=== PATIENT | female | born 1935 | race Caucasian/White ===

== ENCOUNTER → 2017-05-30 | Outpatient (CLI) | payer MEDICARE, OTHER ==
[~2017-05-30] MED LIST: ACETAMINOPHEN-1 EAC1 PO; ADDERALL 20 MG20 M1 PO; ARICEPT 5 MG TAB5 MG PO; ASPIR 8181 MG PO; CARBIDOPA-LEVO1 EAC8 PO; CARDIZEM CD120 MG PO; CENTRUM SILVER1 EAC2 PO; CETIRIZINE HCL5 MG PO; COLACE 100 MG100 MG PO; COLACE100 MG PO; KEFLEX500 MG PO; NAMENDA 5 MG TAB5 M1 PO; NORVASC2.5 MG PO; ONDANSETRON HCL4 M2 PO; OXYBUTYNIN CHLO10 MG PO; OXYCODONE HCL 55 MG PO; PAXIL10 MG PO; PREDNISONE 5 MG5 M1 PO; PROTONIX40 M1 PO; SEROQUEL 25 MG25 M1 PO; SERTRALINE HCL50 MG PO; TYLENOL EXTRA500 MG PO; TYLENOL325 MG PO; VITAMIN D1000 UNI1 PO; ZESTRIL20 MG PO
== END ==
LOC: M.CT 15:00 → M.LAB 15:00 → M.CT 15:20
DX: R53.83 Other fatigue (principal); R41.3 Other amnesia; Z88.1 Allergy status to other antibiotic agents

== ENCOUNTER 2017-08-30 12:19 | Inpatient (IN) | payer MEDICARE, OTHER ==
[~2017-08-30] VITALS: Ht 160 cm; Wt 60.3 kg
[~2017-08-30 12:19] MED LIST changes: -ADDERALL 20 MG20 M1 PO; -CARDIZEM CD120 MG PO; -COLACE 100 MG100 MG PO; -NAMENDA 5 MG TAB5 M1 PO; -OXYBUTYNIN CHLO10 MG PO; -SEROQUEL 25 MG25 M1 PO; -SERTRALINE HCL50 MG PO; -TYLENOL EXTRA500 MG PO; -VITAMIN D1000 UNI1 PO
[2017-08-30 12:26] VITALS: BP 122/53
[2017-08-30 13:11] LABS: ABSOLUTE EOSINOPHILS 0.2 thou/uL (0.0-0.7); ABSOLUTE LYMPHOCYTES 0.9 thou/uL (0.8-5.3); ABSOLUTE MONOCYTES 0.5 thou/uL (0.0-1.2); ABSOLUTE NEUTROPHILS 5.6 thou/uL (1.6-8.1); BASOPHILS 0.6 %; EOSINOPHILS 3.2 %; HEMATOCRIT 32.8 % (37.0-47.0); HEMOGLOBIN 10.3 gm/dL (12.0-15.0); LYMPHOCYTES 12.1 %; MCH 28.5 pg (26.0-34.0); MCHC 31.3 g/dL (28.0-37.0); MCV 90.9 fL (80.0-100.0); MONOCYTES 7.5 %; MPV 7.6 fl. (7.2-11.1); NUCLEATED RBCS 0 /100WBC; PLATELET COUNT* 229 thou/uL (150-400); POLYS 76.6 %; RDW-CV 16.5 % (10.5-14.5); WBC 7.3 thou/uL (4.0-11.0)
[2017-08-30 13:16] LABS: ANION GAP 12 mmol/L (7-16); BUN 21 mg/dL (7-18); CHLORIDE 102 mmol/L (98-107); CO2 31 mmol/L (21-32); CREATININE 1.1 mg/dL (0.6-1.3); GLUCOSE 139 mg/dL (70-99); POTASSIUM 4.2 mmol/L (3.5-5.1); SODIUM 145 mmol/L (136-145)
[2017-08-30 13:22] LABS: APTT 24.1 Seconds (25.0-31.3); INR 1.1; PROTIME 10.8 Seconds (9.20-11.50)
[2017-08-30 13:27] LABS: ALBUMIN 3.1 g/dL (3.4-5.0); ALKALINE PHOSPHATASE 114 U/L (46-116); NT-PRO BRAIN NAT PEPTIDE 2012 pg/mL (<300); SGOT 21 U/L (15-37); SGPT 24 U/L (30-65); TOTAL BILIRUBIN 0.4 mg/dL (<0.1-1.0); TROPONIN-I LEVEL <0.06 ng/mL (<0.06)
[2017-08-30] MEDS ORDERED: VITAMIN D1000 UNI1 PO (13:37)
[2017-08-30] MEDS ORDERED: COLACE 100 MG100 MG PO (13:37)
[2017-08-30] MEDS ORDERED: CARDIZEM CD120 MG PO (13:38)
[2017-08-30] MEDS ORDERED: NAMENDA 5 MG TAB5 M1 PO (13:40)
[2017-08-30] MEDS ORDERED: OXYBUTYNIN CHLO10 MG PO (13:41)
[2017-08-30] MEDS ORDERED: SEROQUEL 25 MG25 M1 PO (13:42)
[2017-08-30] MEDS ORDERED: TYLENOL EXTRA500 MG PO (13:42)
[2017-08-30] MEDS ORDERED: SERTRALINE HCL50 MG PO (13:43)
[2017-08-30 14:33] LABS: URINE BILIRUBIN NEGATIVE (Negative); URINE BLOOD NEGATIVE (Negative); URINE CLARITY CLEAR; URINE COLOR YELLOW; URINE GLUCOSE-RANDOM NEGATIVE (Negative); URINE KETONES NEGATIVE (Negative); URINE LEUKOCYTES-REFLEX NEGATIVE (Negative); URINE NITRITE-REFLEX NEGATIVE (Negative); URINE PROTEIN NEGATIVE (Negative); URINE UROBILINOGEN 0.2 E.U./dl (0.2-1.0)
--- NOTE | 2017-08-30 14:55 | EKG ---
[place] [address] ELECTROCARDIOGRAM REPORT Name: AUTUMN LUCAS Room: [facility]#: [id number] Admission: 08/30/17 Attend Phys: Discharge: Date of : 35 Report #: [id number] THIS REPORT FOR: //name// [facility] ED Test Date: 2017-08-30 Test Time: 12:27:42 Pat Name: AUTUMN LUCAS Department: Room: Gender: F Site Safety Coordinator: buddy : 1935 Requested By: Marisa Edwards Order Number: [id number] MD: Jonathon Golden Measurements Intervals [place] Rate: 76 P: SC: QRS: 43 QRSD: 89 T: 21 QT: 383 QTc: 431 Interpretive Statements Atrial fibrillation Compared to ECG 10/14/2016 23:02:27 Sinus rhythm no longer present Electronically Signed On 08-30-2017 14:55:43 CDT by Jonathon Golden [email or web address] <ELECTRONICALLY SIGNED> By: Jonathon Golden MD, [facility] 08/30/17 1455 1227 1227 Jonathon Golden MD, FACC /EPI
--- NOTE | 2017-08-30 15:05 | NUR ---
FAXED [facility]ICAL RECORDS FOR 08/21/[address] RESULTS PER DR. LAWLER.
[2017-08-30 16:00] VITALS: BP 156/63
[2017-08-30 16:15] VITALS: BP 106/64
--- NOTE | 2017-08-30 16:15 | NUR ---
REVIEWED DOCUMENTATION OF Sara SOLIS STUDENT & AGREE W/ SAME.
--- NOTE | 2017-08-30 19:11 | NUR ---
PT ADMITTED TO ROOM 228 VIA CART FROM ED WITH AFIB AND WEAKNESS. PT ORIENTED TO ROOM AND CALL LIGHT. ADMISSION ASSESSMENT AND HISTORY COMPLETED. REFER TO CHARTING. SEPSIS SCREENING COMPLETE-NEGATIVE. PT A&0X3, FORGETFUL AND CONFUSED AT TIMES. PT HAS HAD PREVIOUS FALLS. FALL RISK IN PLACE. PT TRACING AFIB ON THE CASSANDRA CONSULTANT. RATE CONTROLLED IN THE 80'S. PT HAS HISTORY OF AFIB SINCE HIP SURGERY IN JULY/2017. STRESS INCONT NOTED. SKIN INTACT, REDNESS NOTED TO BOTTOM BUT BLANCHABLE. PT UP WITH 1 ASSIST AND WALKER TO BATHROOM. PARKINSONS AND DEMENTIA NOTED. CARDIOLOGY CONSULT IN PLACE. DR GANT HERE TO SEE PT. NO NEW ORDERS RECEIVED AT THIS TIME. PT TO HAVE PHYSICAL AND OCCUPATIONAL THERAPY TREAT AND EVAL TOMORROW. MEDICATIONS PER APR. PT REPOSITIONED EVERY 2 HOURS FOR COMFORT. HOURLY ROUNDING OBSERVED. BED IN LOW POSITION. BED ALARM IN PLACE. FALL PRECAUTIONS IN PLACE. CALL LIGHT WITHIN REACH. WILL CONTINUE PLAN OF CARE.
[2017-08-30 20:00] VITALS: BP 127/52
[2017-08-31] VITALS: BP 157/62
[2017-08-31 04:00] VITALS: BP 179/86
--- NOTE | 2017-08-31 05:05 | NUR ---
PATIENT RESTED IN BED, NO ACUTE CHAGNES. PATIENT DID NOT SHOW SIGNS OF DISTRESS. FALL PRECAUTIONS IN PLACE, BED ALARM ON, CALL LIGHT WITHIIN IN REACH, HOURLY ROUNDING OBSERVED.
[2017-08-31 07:51] VITALS: BP 139/81
--- NOTE | 2017-08-31 08:15 | NUR ---
RECIEVED REPORT. ASSUMED CARE OF PT AT 0730. VSS. CARDIAC MONITORING IN PLACE AFIB. AM ASSESSMENT AND VITALS COMPLETED CHARTED. PT ALERT AND ORIETNED X4. PT ON RA. PT DENIES ANY PAIN THIS AM. PT IS UP WITH ASSIST X1 WITH WALKER. PT UP TO CHAIR FOR BREAKFAST THIS AM. IV SALINE LOCKED. INFORMED PT OF PLAN OF CARE. PT COMMUNICATES UNDERSTANDING. CALL LIGHT IS WITHIN REACH. WILL CONTINUE TO MONTIOR FOR DURATION OF SHFIT.
[2017-08-31 11:26] VITALS: BP 82/40
--- NOTE | 2017-08-31 12:43 | EKG ---
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: : 1935 Requested By: Marisa Edwards Order Number: [id number] Reading MD: Carrillo Mendieta Measurements Intervals [place] Rate: 101 P: [place]: QRS: 22 QRSD: 90 T: -18 QT: 355 QTc: 461 Interpretive Statements Atrial fibrillation Borderline T abnormalities, inferior leads Compared to ECG 08/30/2017 12:27:42 T-wave abnormality now present Electronically Signed On 08-31-2017 12:43:00 CDT by Carrillo Mendieta [email or web address] <ELECTRONICALLY SIGNED> By: Carrillo Mendieta MD, FACC 08/31/17 1243 1002 1002 Carrillo Mendieta MD, [facility] /EPI
[2017-08-31 15:47] VITALS: BP 128/51
--- NOTE | 2017-08-31 16:19 | NUR ---
CM SPOKE TO THE PATIENT TO DISCUSS HOME SITUATION, DISCHARGE PLANNING, AND TO INFORM OF THE ROLE OF CM. PATIENT ALERT AND ORIENTED. PATIENT RESIDES AT HOME WITH HER SON AND FAMILY. PATIENT INFORMS THAT SHE IS A STAND BY ASSIST AT HOME WHEN BATHING FOR SAFETY. PATIENT USES A WALKER FOR MOBILITY, AND THE HOME IS EQUIPPED WITH GRAB BARS, SHOWER BENCH, AND A RAMP. PATIENT HAS A H[facility] OF [facility]. CM WILL REMAIN AVAILABLE TO ASSIST AND FOLLOW NEEDED.
--- NOTE | 2017-08-31 17:34 | NUR ---
VSS. CARDIAC MONITOIRING IN PLACE WITH NO CHANGES THIS SHIFT. PT IS PROGRESSING TOWARDS GOALS. PT REMAINS ON RA. PT HAD SOME FORGETFULLNESS THIS AFTERNOON. PT UP WITH ONE TO BATHROOM THIS AM, BUT DUE TO WEAKNESS PT [place] ABLE [place] [facility]. PT DENIES ANY COMPLAINTS OF PAIN OR DISCOMFORT THIS SHIFT. PT UP TO CHAIR THIS AFTERNOON. WILL CONTINUE TO MONITOR.
[2017-08-31 20:00] VITALS: BP 120/43
[2017-09-01] VITALS: BP 128/60
--- NOTE | 2017-09-01 01:57 | NUR ---
PATIENT ALERT AND ORIENTED X 3-4, SOME FORGETFULNESS. UP WITH A ROLLING WALKER. DENIES COMPLAINTS OF PAIN, DISCOMFORT OR SOA. SON IN EARLIER. CONCERNED THAT SHE MAY BE DISCHARGED IN COUPLE OF DAYS. TOLD HIM TO COME IN AM TO CATCH THE DOCTOR ON ROUNDS. NO DISTRESS, AMBULATES WITH SLOW SHUFFLING GAIT. CONT TO MONITOR. AFIB ON MONITOR.
[2017-09-01 04:00] VITALS: BP 91/52
[2017-09-01 07:32] VITALS: BP 158/66
--- NOTE | 2017-09-01 08:15 | NUR ---
RECEIVED REPORT. ASSUMED CARE OF PT AT 0730. PT ALERT AND ORIENTED BUT FORGETFUL. PT ON RA. IV SALINE LOCKED. PT DENIES ANY COMPLAINTS OF PAIN OR DISCOMFORT THIS AM. PT IS UP WITH ASSITANCE X1 TO CHAIR FOR BREAKFAST. PT'S SON AT BEDSIDE THIS AM. PT'S SON CONCERNED WITH PT GOING HOME THIS TODAY. PT'S SON WANTS PT EVALUATED FOR REHAB. PER SON PT HAS NOT BEEN DOING WELL AT HOME AND HOME HEALTH HAD TO "CONSIDER SENDING HER TO THE ER EVERYDAY." WHEN PT WAS AT HOME. PT DENIES ANY PAIN THIS AM. PT AND SON INFORMED OF PLAN OF CARE. CALL LIGHT IS WITHIN REACH. WILL CONTINUE TO MONIITOR.
--- NOTE | 2017-09-01 11:49 | NUR ---
PT'S SON HAS MULTIPLE DIFFERENT CONCERNS REGARDING PT'S CONDITION. PT REPORTS SOME PAIN TO RIGHT HIP AND RIGHT SIDE BUT REFUSES ANY MEDICATIONS. AFTER PT AMBULATED FROM CHAIR TO BATHROOM AND BACK PT HAD COMPLAINTS OF NOT FEELING WELL WITH SYMPTOMS INCLUDING WEAKNESS, SHAKING, PAIN, AND INVOLUNTARY JERKING MOVEMENTS. PT'S BP STABLE. REASSURANCE AND EDUCATION PROVIDED TO PT AND FAMILY. DR. PATEL ROUNDING ON PT AT THIS TIME. WILL CONTINUE TO [place].
[2017-09-01 12:00] VITALS: BP 115/68
[2017-09-01 15:43] VITALS: BP 101/37
[2017-09-01 20:00] VITALS: BP 109/49
[2017-09-02] VITALS: BP 164/71
[2017-09-02 04:00] VITALS: BP 137/62
--- NOTE | 2017-09-02 04:06 | NUR ---
ASSUMED PT CARE AT 1930. ASSESSMENT COMPLETED CHARTED. PT RESTING IN BED ALL NIGHT, NO C/O PAIN OR DISCOMFORT. ABLE TO MAKE SOME NEEDS KNOWN, RUNNING AFIB WITH CONTROLLED RATE. PT CONFUSED AT TIMES AND HAS ONLY GOTTEN UP TO USE RESTROOM. WILL CONTINUE TO MONITOR.
[2017-09-02 05:16] LABS: HEMOGLOBIN 10.5 gm/dL (12.0-15.0); MCH 28.6 pg (26.0-34.0); MCHC 31.8 g/dL (28.0-37.0); MCV 89.8 fL (80.0-100.0); MPV 8.1 fl. (7.2-11.1); RBC 3.67 mil/uL (4.20-5.00); RDW-CV 16.4 % (10.5-14.5); WBC 5.6 thou/uL (4.0-11.0)
[2017-09-02 05:43] LABS: ALBUMIN 3.1 g/dL (3.4-5.0); CALCIUM 8.6 mg/dL (8.5-10.1); CREATININE 0.9 mg/dL (0.6-1.3); MAGNESIUM 2.2 mg/dL (1.8-2.4); POTASSIUM 3.8 mmol/L (3.5-5.1); TOTAL BILIRUBIN 0.3 mg/dL (<0.1-1.0); TOTAL PROTEIN 6.4 g/dL (6.4-8.2)
[2017-09-02 07:57] VITALS: BP 153/67
--- NOTE | 2017-09-02 08:00 | NUR ---
RECEIVED REPORT. ASSUMED CARE OF PT AT 0730. VSS. CARDIAC MONTIORING IN PLACE AFIB. AM ASSESSMENT AND VITALS COMPELTED CHARTED. PT ALERT AND ORIENTED X3 PT FORGETFUL. PT ON RA. IV SALINE LOCKED. PT HAS MRI AND EEG ORDERED FOR TODAY. PT AND FAMILY INFORMED OF PLAN OF CARE. CALL LIGHT IS WITHIN REACH. WILL CONTINUE TO MONTIOR FOR DURAION OF SHIFT.
--- NOTE | 2017-09-02 11:03 | CON ---
[address] [address] CONSULTATION Name: AUTUMN LUCAS Room: [address] IN .R.#: [id number] Admission: 08/30/17 Attend Phys: Tabby Horan MD Discharge: Date of : 35 Report #: [id number] THIS REPORT FOR: //name// CC: Jonathon Horan DATE OF SERVICE: 08/30/2017 CARDIOLOGY CONSULTATION HISTORY OF PRESENT ILLNESS: The patient is an 81-year-old single white female who I was asked to see in the hospital after she was noted to be in atrial fibrillation. The history is obtained from the patient's son, the patient herself as well as some old records. She has a long history of a heart murmur. She has seen a field manager in the past. She also has dementia and Parkinson's and is not very active. She has a long history of falls. She apparently fell 3 years ago and fractured hip requiring hip surgery. In July 2017, she fell again and apparently was admitted to [facility] and had hip surgery. Apparently, according to the son after the hip surgery, she went into atrial fibrillation and was switched from amlodipine to diltiazem for rate control. She was placed on Eliquis after her hip surgery. After surgery, she was discharged to rehab and to long-term. She has not been back home for a week. They took her off of Eliquis a week ago post hip surgery. She apparently just saw her neurologist yesterday. The patient is still recovering from her hip surgery and uses a walker. The patient went to see her primary care physician, Dr. Rosario today. Dr. Rosario noticed that she was in atrial fibrillation. The patient complained to be weak. She has had high blood pressure. She was sent to the Emergency Room and cardiology consultation was requested after she was admitted. The patient denies history of myocardial infarction, chest pain, shortness of breath, palpitations, loss of consciousness, bleeding problems. PAST MEDICAL HISTORY: Otherwise significant for hysterectomy, cataract extraction, high blood pressure. MEDICATIONS: On admission consists of aspirin, Aricept, lisinopril, Protonix, diltiazem, Namenda, oxybutynin, sertraline. She is no longer on amlodipine. ALLERGIES: SHE HAS AN INTOLERANCE TO Z-JARRED. FAMILY HISTORY: Negative for heart disease. SOCIAL HISTORY: She is , lives with her son in [place], [place]. She has no history [place] [address] CONSULTATION Name: AUTUMN LUCAS Kaylee Room: [address] IN [facility]#: [id number] Admission: 08/30/17 Attend Phys: Tabby Horan MD Discharge: Date of : 35 Report #: [id number] REVIEW OF SYSTEMS: She has had no history of stroke, asthma, peptic ulcer disease, liver disease, kidney disease, cancer, psychiatric illness. PHYSICAL EXAMINATION: GENERAL: Revealed an elderly frail appearing female, lying in bed. She appeared in no acute distress. VITAL SIGNS: She had a blood pressure of 120/60, pulse is 70. She is afebrile. HEENT: She is anicteric. Conjunctivae pale. Mucous members appear dry. NECK: Neck veins not distended. CHEST: Clear to auscultation. CARDIOVASCULAR: Irregular rhythm. She had a grade 3 systolic ejection murmur along the sternal border. ABDOMEN: Soft. EXTREMITIES: Had no edema. Dorsalis pedis pulse cannot be palpated. SKIN: Cool and dry. NEUROLOGIC: Nonfocal. Her ECG showed atrial fibrillation with controlled response. Her workup in the Emergency Room today, she had a chest x-ray that showed no acute abnormality. CT scan of the chest using a PE protocol showed fibrotic scarring in the lungs, prominent pulmonary arteries. No pulmonary embolus. Previous CT scan of the head without contrast in May for confusion showed no acute abnormality and volume loss. There were small vessel changes. LABORATORY DATA: Today, sodium 145, creatinine 1.1, glucose 139. Troponin 0.06. Her white blood cell count 7.3, hemoglobin 10.3. IMPRESSION AND RECOMMENDATIONS: 1. Atrial fibrillation. Rate controlled with a calcium triny. I would not recommend attempts at cardioversion. The patient appears to be a high risk for bleeding, so I would not recommend anticoagulation. I will continue aspirin 81 mg a day. 2. Hypertension. The patient is on an LEIGH inhibitor and calcium triny. 3. Dementia. 4. Recent hip fracture. 5. Recurrent falls. 6. Parkinson disease. The patient is followed by Neurology. <ELECTRONICALLY SIGNED> By: Jonathon Golden MD, FACC 09/02/17 1103 1709 [email or web address] Golden MD, FACC /nt
[2017-09-02 12:46] VITALS: BP 100/42
--- NOTE | 2017-09-02 13:20 | NUR ---
CONTINUE TO FOLLOW, MET WITH PT. SHE STATED SHE FELT BETTER TODAY AND THOUGHT SHE DID WELL WITH THERAPY. SHE HOPES TO RETURN HOME AT [place] AND IS OPEN TO HH, HAS USES [facility] IN PAST. HAS REHAB CONSULT ALSO. AWAIT TESTS TODAY. WILL FOLLOW
--- NOTE | 2017-09-02 13:51 | NUR ---
RECEIVED CONSULT FOR POSSIBLE REHAB ADMISSION. CONSULT HAS BEEN ACKNOWLEDGED BY ROTARY LITHOGRAPHIC PRESS OPERATOR AND DR. FALLON. PATIENT HAS PARKINSONS WAS ADMITTED WITH AFIB AND RECENT FALLS WITH DEBILITY. OT/ST EVALUATIONS ARE PENDING. PT EVALUATION SHOWES NEEDS FOR REHAB. WILL FOLLOW ALONG WITH PATIENT TO SEE HOW SHE PROGRESSES AND IF QUALIFIES FOR ACUTE REHAB PENDING OT/ST EVALUATIONS. THANK YOU FOR THIS CONSULT.
--- NOTE | 2017-09-02 17:26 | NUR ---
VSS. CARDIAC MONITORING IN PLACE WITH NO CHAGNES THIS SHFIT. PT PROGRESSING TOWAQRDS GOALS. PT ON RA. IV SALINE LOCKED. PT WORKED WITH PHYSCIAL THERAPY THIS SHIFT. PT AMBULATED IN [facility] WALKER. PT HAD EEG AND MRI THIS SHIFT. PT HAD NO COMPLAINTS OF PAIN OR DISCOMFORT THIS SHIFT. PT DID NOT HAVE ANY MUSCLE TWITCHING MOVEMENTS THIS SHIFT. PT AND FAMILY INFORMED OF PLAN OF CARE. POSSIBLE DISCHARGE TOMRROW. CALL LIGHT IS WITHIN REACH. WILL CONTINUE TO [place] FOR DURAITON OF SHIFT.
[2017-09-02 20:00] VITALS: BP 159/60
[2017-09-03] VITALS (8 sets, daily range): BP systolic 92–169; BP diastolic 41–93
--- NOTE | 2017-09-03 02:50 | NUR ---
ASSUMED PT CARE AT 1930. ASSESSMENT COMPLETED CHARTED. PT ABLE TO MAKE SOME NEEDS KNOWN. UP TO BATHROOM WITH WALKER, PT RESTING IN BED AT THIS TIME. NO C/O PAIN OR DISCOMFORT. WILL CONTINUE TO MONITOR.
--- NOTE | 2017-09-03 10:06 | NUR ---
ASSUMED CARE OF PT THIS AM AROUND 07- BUREAU DIRECTOR IN PLACE ORDERED, TRACING A-FIB/RATE CONTROLED- UPON ASSESSMENT PT NOTED TO BE RESTING IN BED-PT A&O X3, FORGETFULL- CONTINENT VS INCONTINENT OF BOWEL AND BLADDER, STRESS INCONTINENTS ON OCCASSION NOTED- SBA WITH RW FOR TRANSFERS- LCTA, RESP EVEN AND UN-LABORED- VSS, O2 SAT 93% ON RA- ABDOMEN SOFT/ROUND/NON-TENDER, BS X4 QUADS- LAST BM REPORTED 09/02/17- IV NOTED TO LEFT FA INTACT AND SL- GOOD PO INTAKE NOTED THIS AM WITH BREAKFAST- DENIES ANY C/O PAIN/DISCOMFORT AT THIS TIME- CALL LIGHT AND PERSONAL BELONGINGS WITH IN REACH- HOURLY ROUNDS IN PLACE R/T SAFETY/NEEDS- ALL NEEDS MET AT THIS TIME-WCTM
[2017-09-03 11:50] LABS: BE -4.3 mmol/L (-2 to +3); HCO3 18.7 mmol/L (22.0-26.0); PCO2 28.1 mmHg (35.0-45.0); PO2 92.1 mmHg (75.0-100.0)
[2017-09-03 12:08] LABS: CALCIUM 8.9 mg/dL (8.5-10.1); CREATININE 1.3 mg/dL (0.6-1.3); MAGNESIUM 2.1 mg/dL (1.8-2.4); POTASSIUM 3.2 mmol/L (3.5-5.1)
--- NOTE | 2017-09-03 15:22 | NUR ---
CONTINUE TO FOLLOW. MET WITH PT AND THEN [facility] PT, SON AND DIL. PLAN IS FOR PT TO GO TO INPT REHAB AT [place]. WAS TO GO TODAY BUT HAD EPISODE THIS AM OF DIAPHORESIS AND DECREASED LOC. TENTATIVE DC TOMORROW TO REHAB. UPDATED MIRNA. PER SON/KENNY. SOMEONE CAN BE HOME WITH PT MOST OF THE TIME. SHE HAD A HIP SURGERY IN JULY AND WAS AT [facility], WENT TO REHAB THERE AND THEN TO [facility] [place] FOR ABOUT 3 WEEKS. KENNY IS HOPEFUL PT CAN GET BACK TO HER PRIOR LEVEL OF FX AND GET BACK HOME SOON. HE STATED SHE WAS ABLE TO SHOWER AND DRESS HERSELF AND GET A MEAL WARMED UP WHILE THEY WERE GONE PRIOR TO ADMIT. WILL FOLLOW
--- NOTE | 2017-09-03 16:45 | NUR ---
PT CURRENTLY RESTING IN BED- ASSOCIATE PATHOLOGIST IN PLACE ORDERED, TRACING A-FIB-PT NOTED TO BE TIRED THIS AFTERNOON REQUIRING ASSITANCE AND ENCOURAGEMENT WITH FAIR PO INTAKE NOTED WITH LUNCH-CT OF HEAD COMPLETED ORDERED, [facility]- STATUS CHANGED TO DNR PER PT SON REQUEST PER PT REQUEST THIS SHIFT PER - PT DENIES ANY C/O PAIN/DISCOMFORT AT THIS TIME-FREQUENT CHECKS IN PLACE R/T SAFETY/NEEDS- ALL NEEDS MET AT THIS TIME-WCTM
[2017-09-04 04:00] VITALS: BP 182/73
--- NOTE | 2017-09-04 06:50 | NUR ---
PATIENT RESTING IN BED MOST OF NIGHT. UP TO THE BATHROOM SERVAL TIMES DURING THE NIGHT. GAIT SLOW BUT STEADY WITH ROLLING WALKER. DENIES COMPLAINTS OF PAIN OR DISCOMFORT. NO SOA. NO SIGNS OF DISTRESS. CONT. WITH PLAN OF CARE AT THIS TIME.
[2017-09-04 08:08] VITALS: BP 182/82
--- NOTE | 2017-09-04 10:08 | NUR ---
ASSUMED CARE OF PT THIS AM AROUND 07- EXPERIMENTAL PLASTICS FABRICATOR IN PLACE ORDERED, TRACING A-FIB/RATE CONTROLED- UPON ASSESSMENT PT NOTED TO BE RESTING IN BED- PT A&O X2-3 WITH NOTED INTERMEDIATE CONFUSSION- CONTINENT VS INCONTINENT OF BOWEL AND BLADDER- LCTA, RESP EVEN AND UN-LABORED- VSS, O2 SAT 96% ON RA- ABDOMEN SOFT/ROUND/NON-TENDER, BS X4 QUADS- LAST BM REPORTED X2 DAYS AGO- TRACE EDEMA NOTED TO BLE- PT UP TO CHAIR THIS AM WITH BREAKFAST, GOOD PO INTAKE NOTED- IV NOTED TO RIGHT FA INTACT, IVF INFUSSING PRESCRIBED- PT DENIES ANY C/O PAIN/DISCOMFORT AT THIS TIME-CALL LIGHT AND PERSONAL BELONGINGS WITH IN REACH-HOURLY ROUNDS IN PLACE R/T SAFETY/NEEDS- ALL NEEDS MET AT THIS TIME-WCTM
[2017-09-04 11:03] LABS: CALCIUM 8.8 mg/dL (8.5-10.1)
[2017-09-04 11:04] LABS: POTASSIUM 4.6 mmol/L (3.5-5.1)
--- NOTE | 2017-09-04 11:54 | NUR ---
CONTINUE TO FOLLOW, PT HAS ORDERS TO DC TO INPT REHAB TODAY. MET [facility] PT, SON AND DIL. ANSWERED QUESTIONS. THEY ARE CONCERNED ABOUT CARE NEEDS AFTER REHAB, HOPEFUL PT CAN RETURN HOME AND CONTINUE TO DO WELL AND GO TO OUTPT AT [facility]. TO GO TO REHAB THIS AFTERNOON, DISCUSSED WITH MIRNA/YADIEL
[2017-09-04 12:00] VITALS: BP 128/34
--- NOTE | 2017-09-04 13:35 | EKG ---
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 Contractor: : 1935 Requested By: Lew Marks Order Number: [id number] Reading MD: Brian Segura Measurements Intervals [place] Rate: 73 P: SD: QRS: 36 QRSD: 92 T: -10 QT: 399 QTc: 440 Interpretive Statements Atrial fibrillation Borderline T abnormalities, inferior leads Compared to ECG 08/31/2017 10:02:02 No significant changes Electronically Signed On 09-04-2017 13:35:31 CDT by Brian Segura [email or web address] <ELECTRONICALLY SIGNED> By: Brian Segura MD, [facility] 09/04/17 1335 1148 1148 Brian Segura MD, [facility] /EPI
--- NOTE | 2017-09-04 15:52 | NUR ---
PT CURRENTLY RESTING IN BED, FRIENDS AT SIDE VISITING- IV TO RIGHT FA INTACT, IVF INFUSING PRESCRIBED- GOOD PO INTAKE NOTED WITH MEALS THIS SHIFT- UP TI BED SIDE CHAIR WITH MEALS TOLERATING WELL- BMP DRAWN THIS AM, RESULTS TO -K+ NOTED WITH IMPROVEMENT OF 4.6- DENIES ANY C/O PAIN/DISCOMFORT AT THIS TIME- D/C PLANNED TO REHAB THIS SHIFT AROUND 1745- ALL NEEDS MET AT THIS TIME-WCTM
--- NOTE | 2017-09-06 12:17 | EEG ---
[address] [address] EEG STUDY REPORT Name: AUTUMN LUCAS Room: [address]#: [id number] Admission: 08/30/17 Attend Phys: Tabby Horan MD Discharge: 09/04/17 Date of : 35 Report #: [id number] THIS REPORT FOR: //name// CC: Jonathon Horan DATE OF SERVICE: 09/02/2017 REASON FOR STUDY: This patient is being evaluated for tremor and jerking. DESCRIPTION OF PROCEDURE: EEG was done by placing the electrode by standard 10-20 system of electrode placement. Both referential and sequential montages were used for recording. Background activity in this patient's EEG is about 8 Hz and 30 microvolt. It is a symmetrical activity. The patient became drowsy and that is associated with bilateral slowing. Photic stimulation is unremarkable. Throughout the record, no active epileptiform activity was noticed. IMPRESSION: This patient's electroencephalogram is intermixed with theta range slowing on both sides. That is a nonspecific abnormality, which can occur with encephalopathy, effect of psychotropic medication, dementia, etc. Clinical correlation is recommended. <ELECTRONICALLY SIGNED> By: Rafael Peterson MD 09/06/17 1217 0711 [id number] Peterson MD /nt
--- NOTE | 2017-09-06 12:17 | CON ---
[address] [address] CONSULTATION Name: AUTUMN LUCAS Room: [address] IN M.R.#: [id number] Admission: 08/30/17 Attend Phys: Tabby Horan MD Discharge: 09/04/17 Date of : 35 Report #: [id number] THIS REPORT FOR: //name// CC: Jonathon Horan DATE OF SERVICE: 09/02/2017 HISTORY OF PRESENT ILLNESS: This is an 81-year-old female patient who was evaluated by me for some jerking. The patient is not able to provide any reliable history. I have called the family multiple times, but have been unable to reach them. This patient apparently has a history of seizure. She is having some jerking movements. Some of the records indicate she has a history of Parkinson's disease, but I cannot get any further history at all on this patient and I cannot reach any family. REVIEW OF SYSTEMS: Indicate that this patient has a history of falls, why she falls down, it is not clear. It is not clear if it is because of Parkinson's disease. She had a history of atrial fibrillation. She had tachybrady arrhythmias. She has a history of myocardial infarction. She, one time fell down and had some hip problem. She is on Namenda, so I suspect she may have been diagnosed with Alzheimers. I carried out the 14-point review of systems, this is what I can get. PAST MEDICAL HISTORY: Positive for hysterectomy and cataracts. FAMILY HISTORY: Negative for heart disease. SOCIAL HISTORY: She does not smoke or drink any alcohol. PHYSICAL EXAMINATION: The patient's examination is limited. She is alert. She does not follow commands all the time. She does not know what month or day it is. Her speech is poor. When she moves, she does shake. Cranial nerve examination 2-12 was attempted. She was not able to cooperate. I did not see much focality. I tried to look at the fundus, she did not cooperate. I do not think she has cerebellar size. It is mostly the tremor she has. She has no meningeal sign. She has no thyroid mass. Her pulses are difficult to feel. Heart appeared to be irregular. No respiratory difficulty or rhonchi was noticed. Blood pressure is 100/42, pulse is 86, temperature is 96.8. LABORATORY DATA: White count is 5.6. Head CT scan does not show any acute intracranial abnormality. IMPRESSION AND PLAN: It is not possible to form any impression in this patient. I need to talk to the patient's family. I will continue to try to get hold of them. I need to see if she has a history of Parkinson's disease[place] [address] CONSULTATION Name: AUTUMN LUCAS Room: [address]#: [id number] Admission: 08/30/17 Attend Phys: Tabby Horan MD Discharge: 09/04/17 Date of : 35 Report #: [id number] EEG done. Her history of seizure is also poorly defined. We just need a better history before any definite impression can be found in this patient. We will try to continue to reach the family and talk to them once we are able to reach them. <ELECTRONICALLY SIGNED> By: Rafael Peterson MD 09/06/17 1217 [id number] Peterson MD /nt
--- NOTE | 2017-09-19 12:46 | CON ---
[address] [address] CONSULTATION Name: AUTUMN LUCAS Kaylee Room: [address] IN .R.#: [id number] Admission: 08/30/17 Attend Phys: Tabby Horan MD Discharge: 09/04/17 Date of : 35 Report #: [id number] THIS REPORT FOR: //name// CC: Jonathon Horan REASON FOR CONSULTATION: Evaluation and recommendations regarding post-acute rehabilitation in a female admitted acutely for weakness and bradycardia upon referral from Dr. Rosario. She has known atrial fibrillation. No shortness of air. No chest pain, but she does have changes in her activities of daily living and noted weakness and malaise. She does have some mild dementia, she resides with her daughter, but this is off the baseline. Previous level of function was modified independent to minimum assistance. Current level of function is minimum to moderate assistance of 1-2 depending on therapy, activity and time of day. Estimated length of rehabilitation is unknown at this time. PAST MEDICAL HISTORY: Atrial fibrillation, contusion, fall, nausea, vomiting, pulmonary embolism, pyelonephritis, rib pain on the right side, right-sided back pain, shortness of breath, and weakness. ALLERGIES: AZITHROMYCIN. Vital signs, laboratories and diagnostics have all been reviewed. MEDICATIONS: Reviewed, reconciled and are available in the MAR. MEDICAL AND SURGICAL HISTORY: Not previously mentioned, hysterectomy, Parkinson's, depression, total hip arthroplasty in 2014 and 2017, bilateral cataracts in 2007, skin cancer removed on the left leg in 2016. FAMILY HISTORY: Heart disease. SOCIAL HISTORY: No tobacco, alcohol or illicit drug use. REVIEW OF SYSTEMS: A 14-point review of systems is done and is negative except as mentioned in the HPI, specifically no fever, chest pain, shortness of breath, abdominal pain or distention, change in bowel or change in bladder. PHYSICAL EXAMINATION: GENERAL: Alert, oriented, in no apparent distress. VITAL SIGNS: Reviewed and are stable. HEENT: Head is atraumatic and normocephalic. Pupils are equal, round and reactive. ABDOMEN: Soft, nontender, nondistended. NEUROLOGIC: Cranial nerves 2-12 are grossly intact with no focal neuro deficits, 5/5 strength in the bilateral upper [place] [address] CONSULTATION Name: AUTUMN LUCAS Room: [address]#: [id number] Admission: 08/30/17 Attend Phys: Tabby Horan MD Discharge: 09/04/17 Date of : 35 Report #: [id number] ASSESSMENT: 1. Cardiac debility. 2. Chronic atrial fibrillation. 3. New onset of weakness. 4. Parkinson's disease. 5. Multiple medical comorbidities. PLAN: 1. Recommend further rehabilitation with PT, OT and possibly speech and language pathology given her Parkinson's disease as well as alterations in activities of daily living. 2. We will continue to follow her until her acute medical stay has completed and we will update as needed. <ELECTRONICALLY SIGNED> By: Lashaun Jordan DO 09/19/17 1246 [id number] Jordan DO /nt
== END 2017-09-04 18:01 | DRG 309 ==
LOC: M.ERS 12:19 → M.2W 15:17 → M.TBA-ER 15:17 → M.2W 16:15
PROVIDERS: Internal Medicine; Personal Emergency Response Attendant; ADMIT Internal Medicine
DX: I48.2 Chronic atrial fibrillation (principal); E44.1 Mild protein-calorie malnutrition; D68.69 Other thrombophilia; G91.9 Hydrocephalus, unspecified; F02.81 Dementia in other diseases classified elsewhere, unspecified severity, with behavioral disturbance; F32.9 Major depressive disorder, single episode, unspecified; G25.70 Drug induced movement disorder, unspecified; T50.905A Adverse effect of unspecified drugs, medicaments and biological substances, initial encounter; G20 Parkinson's disease; Z66 Do not resuscitate; Z96.642 Presence of left artificial hip joint; Z79.01 Long term (current) use of anticoagulants; Z88.1 Allergy status to other antibiotic agents; Z79.2 Long term (current) use of antibiotics; Z79.82 Long term (current) use of aspirin; Z79.899 Other long term (current) drug therapy; Z90.710 Acquired absence of both cervix and uterus; Z86.711 Personal history of pulmonary embolism; Z98.42 Cataract extraction status, left eye; Z98.41 Cataract extraction status, right eye; Z87.891 Personal history of nicotine dependence; Z68.23 Body mass index [BMI] 23.0-23.9, adult; Y92.89 Other specified places as the place of occurrence of the external cause; Z91.81 History of falling

== ENCOUNTER 2017-09-04 15:04 | Inpatient (IN) | payer MEDICARE, OTHER ==
[~2017-09-04] VITALS: Ht 165.1 cm; Wt 58.8 kg
[~2017-09-04 15:04] MED LIST changes: +CARDIZEM CD120 MG PO; +COLACE 100 MG100 MG PO; +NAMENDA 5 MG TAB5 M1 PO; +OXYBUTYNIN CHLO10 MG PO; +SEROQUEL 25 MG25 M1 PO; +SERTRALINE HCL50 MG PO; +TYLENOL EXTRA500 MG PO; +VITAMIN D1000 UNI1 PO
[2017-09-04 18:00] VITALS: BP 152/59
[2017-09-04 20:26] VITALS: BP 119/59
[2017-09-05 04:04] LABS: WBC 6.1 thou/uL (4.0-11.0)
[2017-09-05 04:26] LABS: CALCIUM 8.8 mg/dL (8.5-10.1); CREATININE 0.8 mg/dL (0.6-1.3); POTASSIUM 4.2 mmol/L (3.5-5.1)
[2017-09-05 04:30] LABS: HEMATOCRIT 33.4 % (37.0-47.0); HEMOGLOBIN 10.6 gm/dL (12.0-15.0); MCH 28.5 pg (26.0-34.0); MCHC 31.8 g/dL (28.0-37.0); MCV 89.7 fL (80.0-100.0); MPV 8.1 fl. (7.2-11.1); RBC 3.73 mil/uL (4.20-5.00); RDW-CV 16.5 % (10.5-14.5)
--- NOTE | 2017-09-05 05:00 | NUR ---
PT ARRIVED FROM TELE LATE ON DAY SHIFT. ADMISSION COMPLETED EXCEPT FOR ASSESSMENT WHICH WAS DONE BY THIS RN. PT ALERT AND ORIENTED TO SELF, POLITE AND COOPERATIVE WITH CARES. 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 PT UP TO BS WITH ASSIST OF ONE, GAIT BELT AND WALKER TO VOID SEVERAL TIMES OVERNIGHT. PER PT SHE HAS FREQUENCY AND URGENCY ISSUES. PT HAS HX OF AFIB. PT LIVES WITH HER SON AND DOVVVAXT-BX-AWR WHO BROUGHT IN CLOTHING FOR PT. PT USES CALL LIGHT APPROPRIATELY. DENIES PAIN. NO SKIN ISSUES. CALL LIGHT AND FREQUENTLY USED ITEMS WITHIN REACH. HOURLY ROUNDING IN PROGRESS, WILL CONTINUE TO MONITOR.
[2017-09-05 07:54] VITALS: BP 147/81
--- NOTE | 2017-09-05 13:08 | NUR ---
Nutrition: Pt admitted to Rehab with Parkinson's exac. She is eating 80% of heart healthy diet. She stated she has a good appettite. She stated no wt changes. Wt: 139#. Labs, RX, Hx noted. Appears nutritionally stable. Will follow weekly.
--- NOTE | 2017-09-05 16:36 | NUR ---
SW met with pt to complete initial assessment; pt dtr in law present. Pt alert, oriented, pleasant. Pt lives at home with her son and dtr in law and goes to a day program/memory care at [facility] 3 days a week. Pt dtr in law explained that they are going to try to arrange pt to be able to go 5 days a week while family is at work and then be with pt morning and evenings to provide care. Pt has hx with and active with [facility] . Pt had hip replacement 07/09/17 and dtr in law said NKABBE said ortho could follow up at [facility]. Pt has RW. SW to continue to follow to assist with safe dc planning.
--- NOTE | 2017-09-05 17:36 | NUR ---
ASSUMED CARE AT 0730 PT ALERT/FORGETFUL, UP WITH ASSIST OF ONE AND WALKER/GAIT BELT, NO COMPLAINTS OF PAIN THIS SHIFT, PARTICIPATED IN ALL THERAPIES TODAY, TO DINING ROOM FOR MEALS, BED/CHAIR ALARMS IN PLACE CALL LIGHT IN REACH, HOURLY ROUNDING COMPLETED.
[2017-09-05 20:05] VITALS: BP 158/54
--- NOTE | 2017-09-06 05:17 | NUR ---
ASSUMED CARE AT 1920. PT ALERT AND ORIENTED X 2. PLEASANT AND FORGETFUL. DENIES ANY PAIN. TAKES PILLS WHOLE WITHOUT ISSUES. MIN ASSSIST WITH GAIT BELT AND WALKER. UNSTEADY WITH TRANSFERS. UP TO BSC FEW TIMES DURING THE NIGHT. DID OWN CARES. USED CALL LIGHT APPROPRIATELY. SLEPT WELL OTHERWISE. BED ALARM ON.
[2017-09-06 08:00] VITALS: BP 142/52
--- NOTE | 2017-09-06 12:16 | NUR ---
PT REPORTS FEELING WEAK AFTER OT AND ASSISTED TO BED AFTER OT. BP 136/64,P73,O2 98%. PT REMAINS ALERT AND ORIENTATED. PT DOES TRANSFERR WITH MIN ASSIST OF 1 WALKER AND GAITBELT. PT DENIES PAIN OR NAUSEA AND REPORTS BEING TIRED.
--- NOTE | 2017-09-06 15:00 | NUR ---
PT LYING IN BED AND REFUSES TO OPEN EYES AND PARTICIPATE WITH PT OR SPEECH. PT DOES BLINK EYES WITH STERNAL RUB. PT HAS REPORTED SHE WAS TIRED BEFORE LUNCH AND WAS ASSISTED TO BED TRANSFERRING WITH WALKER, GAITBELT AND MIN ASSIST. PT SINCE CALLED USING CALL LIGHT WITH NEED TO GO TO [facility].PT AGAIN TRANSFERRED WITH MIN ASSIST WITH GAITBELT AND WALKER WITH STEADY GAIT AND WAS ABLE TO WIPE SELF AND ADJUST CLOTHING THEN RETURNED TO BED.PT WAS ALERT AND ORIENTATED AND APPROPIATE WHEN ASSISTED WITH TOILETING.VSS STABLE WITH BP 136/63.P 89 AND SAT 95%. MADE AWARE OF STATUS WITH NO NEW ORDERS GIVEN.
--- NOTE | 2017-09-06 18:13 | NUR ---
PT HAS CONTINUED TO SLEEP BUT DOES REACT TO BEING SPOKEN TO WITH FLUTTERING OF EYES. PT REFUSED SUPPER WITH CLENCHING MOUTH CLOSED WHEN OFFERED WATER OR FOOD. PT IS TURNED AND REPOSITIONED. MINDI CARE GIVEN. [id number] REMAIN EVEN AND UNLABORED WITH VSS.TALKED TO PT ABOUT PARTICIPATING WITH THERAPIES TO PROGRESS TOWARDS HOME WITH FAMILY.
[2017-09-06 20:04] VITALS: BP 149/74; BP 149/77
--- NOTE | 2017-09-07 05:02 | NUR ---
ASSUMED PT CARE AT 1930. PT SLEEPING, REFUSES TO OPEN HER EYES BUT BLINKS WITH STERNAL RUB. VSS, WNL. PT UP TO VOID AROUND MIDNIGHT, AWAKE AND CONVERSATIONAL, UP WITH MIN ASSIST, GAIT BELT AND WALKER TO [facility]. PT ALERT AND ORIENTED WHEN TOILETING. PER PT SHE WANTS TO WEAR HER OWN GOWN, STATES SHE THINKS SHE IS ALLERGIC TO THE LAUNDRY DETERGENT USED ON OUR GOWNS AND BLANKETS. PT SLEPT WELL OVERNIGHT, REMAINS COGENT WHEN AWAKE. BED ALARM ON FOR SAFETY. HOURLY ROUNDING IN PROGRESS, WILL CONTINUE TO MONITOR.
[2017-09-07 08:12] VITALS: BP 166/97
--- NOTE | 2017-09-07 16:37 | NUR ---
ASSUMED CARE AT 0730 PATIENT ALERT/ORIENTED TO PERSON/PLACE, HISTORY OF DEMENTIA. UP WITH ASSIST OF ONE AND WALKER, NO COMPLAINTS OF PAIN THIS SHIFT BUT THIS AM AFTER WALKING TO THE BATHROOM PATIENT HAD A SHORT PERIOD OF NOT BEING ABLE TO PLACE ONE FOOT IN FRONT OF THE OTHER, WOULD NOT RESPOND TO VERBAL STIMULATION. WAS ABLE TO GET BACK TO BED WITH HELP FROM STAFF. PATIENT DID PARTICIPATE IN ALL THERAPIES TODAY, HOURLY ROUNDING COMPLETED, BED/CHAIR ALARMS IN PLACE, CALL LIGHT IN REACH. TO DINING ROOM FOR MEALS.
[2017-09-07 20:14] VITALS: BP 104/56
--- NOTE | 2017-09-07 20:25 | NUR ---
SITTING UP IN RECLINER WORKING ON A CROSSWORD PUZZLE. DENIES DISCOMFORT. AMBULATED TO THE BATHROOM WITH SBA, GAITBELT, WALKER. DOES OWN HYGIENE AND CLOTHING ADJUSTMENTS. TOOK MEDICATION WHOLE WITH WATER.
--- NOTE | 2017-09-08 05:29 | NUR ---
UP X ONE DURING THE NIGHT TO THE BATHROOM TO VOID. NO COMPLAINTS VOICED. HOURLY ROUNDING IN PROGRESS.
[2017-09-08 08:18] VITALS: BP 167/67
--- NOTE | 2017-09-08 16:54 | NUR ---
ASSUMED CARE AT 0730 PATIENT ALERT/ORIENTED X2, HISTORY OF DEMENTIA, UP WITH ASSIST OF ONE AND WALKER AND GAIT BELT, NO COMPLAINTS OF PAIN THIS SHIFT, TO DINING ROOM FOR MEALS, BED/CHAIR ALARMS IN PLACE, CALL LIGHT IN REACH, HOURLY ROUNDING COMPLETED.
[2017-09-08 19:30] VITALS: BP 106/43
--- NOTE | 2017-09-08 20:25 | NUR ---
SEVERAL FAMILY MEMBERS JUST LEFT. PATIENT IN GOOD SPIRITS. SMILING, MAKING JOKES. TOOK MEDICATION WHOLE WITH WATER. DENIES DISCOMFORT.
--- NOTE | 2017-09-09 04:51 | NUR ---
UP X TWO DURING THE NIGHT TO THE BATHROOM TO VOID. AMBULATES WITH SBA, GAITBELT, WALKER. DOES OWN HYGIENE AND CLOTHING ADJUSTMENTS. HOURLY ROUNDING IN PROGRESS.
[2017-09-09 07:35] VITALS: BP 156/63
--- NOTE | 2017-09-09 15:59 | NUR ---
PT HAS PARTICIPATED WITH THERAPIES AND CALLS FOR ASSIST NEEDS. PT DENIES PAIN OR NAUSEA AND HAS REMAINED ALERT AND ORIENTATED TODAY.PT EATS MEALS IN DINNINGROOM AND FEEDS SELF. PT PROGRESSES TOWARDS GOALS AND HOURLY ROUNDING CONTINUES.
--- NOTE | 2017-09-09 17:59 | NUR ---
PT APPEARS TO SLEEP SOUNDLY WITH RESPIRATIONS EVEN AND UNLABORED. EYES FLUTTER WHEN SPOKEN TO.PT TURNED AND REPOSITIONED.
[2017-09-09 19:30] VITALS: BP 146/68
--- NOTE | 2017-09-09 20:10 | NUR ---
AWAKENED FOR HS REASSESSMENT AND MED PASS. TOOK MEDICATION WHOLE WITH WATER. NO COMPLAINTS VOICED.
--- NOTE | 2017-09-10 05:57 | NUR ---
UP X TWO DURING THE NIGHT TO THE BATHROOM TO VOID. DOES OWN HYGIENE AND CLOTHING ADJUSTMENTS. AMBULATES WITH SBA, GAITBELT, WALKER. HOURLY ROUNDING IN PROGRESS.
[2017-09-10 08:17] VITALS: BP 145/73
--- NOTE | 2017-09-10 15:17 | NUR ---
SW met with pt briefly who was sleeping and did not respond to conversation with ST and SW asking pt questions. SW called and spoke with pt dtr in law Courtney in preparation for team conference tomorrow. Courtney was with pt son Bari and they both expressed concern for pt being more dispondent and depressed over the last few days since pt was taken off of seroquel due to Afib episodes. Pt dtr in law asking if something for pt mood could be added back in to pt meds? SW to present during team conference and SW to continue to follow to assist with safe dc planning.
--- NOTE | 2017-09-10 16:17 | NUR ---
PT HAS PARTICIPATED WITH THERAPIES THIS AM BUT DID NOT WORK WELL WITH SPEECH THIS AFTERNOON AND WAS ASSISTED TO BED. PT CALLS NOW FOR ASSIST TO BATHROOM AND IS UP WITH GAITBELT AND WALKER AND MIN ASSIST,ALERT AND ORIENTATED.PT DENIES PAIN OR NAUSEA.PT ATE LUNCH IN DINNINGROOM AND VISITED WITH SON AND THIS AFTERNOON.HOURLY ROUNDING CONTINUES.
[2017-09-10 19:30] VITALS: BP 127/59
--- NOTE | 2017-09-11 01:37 | NUR ---
ASSUMED CARE @ 1929-09/10-.APPEARS SLEEPING ON HER BACK W/ HOB UP.BED ALARM ALREADY ON @ 1929.HEELS-PINK/RED.HEELS OFF BED @ 2039.CHANGED TO OWN NIGHT GOWN @ 2244 W/ TAIL SAWYER ASSISTING AFTER BRP.WEARS PULL UPS.ON HOURLY ROUNDS.TAIL SAWYER DOING ODD HOUR ROUNDS.
--- NOTE | 2017-09-11 05:16 | NUR ---
SLEPT EARLY SINCE 1930.USES CALL LIGHT TO CALL FOR ASSIST FOR BRP X2.REFUSED HS SNACK.
[2017-09-11 07:30] VITALS: BP 157/62
--- NOTE | 2017-09-11 15:25 | NUR ---
Plan for pt to remain on rehab unit and for team to [facility] next Saturday with possible dc next Saturday. CLAUDIO presented pt family concerns about medication and pt mood and Dr Jordan discussed this with the family. Pt plan remains to be home with family and Day program at time of dc. No other comments or questions were presented by family or team at this time.
--- NOTE | 2017-09-11 17:48 | NUR ---
ASSUMED CARE AT 0730 PATIENT ALERT/ORIENTED, NO COMPLAINTS OF PAIN THIS SHIFT, UP WITH ASSIST OF ONE AND WALKER/GAIT BELT, PARTICIPATED IN ALL THERAPIES TODAY, TO DINING ROOM FOR MEALS, HOURLY ROUNDING COMPLETED, BED/CHAIR ALARMS IN PLACE, CALL LIGHT IN REACH
[2017-09-11 20:19] VITALS: BP 114/48
--- NOTE | 2017-09-11 20:55 | NUR ---
SITTING UP IN RECLINER WATCHING TV. DENIES DISCOMFORT. TOOK MEDICATIONS WHOLE WITH WATER.
--- NOTE | 2017-09-12 06:13 | NUR ---
RESTED QUIETLY. INCONTINENT OF URINE X ONE. UP TO THE BATHROOM TO VOID X ONE. NO COMPLAINTS VOICED. HOURLY ROUNDING IN PROGRESS.
[2017-09-12 08:22] VITALS: BP 140/63
--- NOTE | 2017-09-12 16:17 | NUR ---
PT HAS SLEPT MOST OF DAY AND NOT PARTICIPATED WITH THERAPIES.PT KEEPS EYES CLOSED AND DOES FLUTTER EYES WITH STERNAL RUB AND WHE BEING TRANSFERRED. TOTAL TRANSFERR TO BED AFTER LUNCH TIME WHICH PT DID NOT EAT. SON HERE DURING TIME AND IS CONSERNED THAT AM MEDICATIONS MIGHT MAKE PT TOO SLEEPY TO PARTICIPATE WITH THERAPY. CALL OUT TO FOR ORDERS SINCE NOT MAKING MINUTES TODAY. PT WITH RESPIRATIONS EVEN AND UNLABORED AND IS TURNED AND REPOSITIONED AND PT APPEARS IN NO DISTRESS.
[2017-09-12 20:00] VITALS: BP 112/54
--- NOTE | 2017-09-13 05:14 | NUR ---
ASSUMED PT CARE AT 1930. PT ALREADY IN BED ASLEEP. PT WOULD NOT RESPOND TO VERBAL STIMULUS. PT AWAKENED MOMENTARILY AT 2100 WITH ORAL CARE. PT SAT UP AND STATED "NO PILLS, IF I SWALLOW PILLS I WILL CHOKE". PT WENT RIGHT BACK TO SLEEP AND SLEPT UNTIL 0300 WHEN SHE AWAKENED WITH TURN AND NEEDED TO GO TO BATHROOM TO VOID. PT UP WITH ONE, GAIT BELT AND WALKER. BACK TO BED AND PROMPTLY BACK TO SLEEP. CALL LIGHT AND FREQUENTLY USED ITEMS WITHIN REACH. HOURLY ROUNDING IN PROGRESS, WILL CONTINUE TO MONITOR.
[2017-09-13 08:00] VITALS: BP 179/79
--- NOTE | 2017-09-13 16:30 | NUR ---
ASSUMED CARE AT 0730 PATIENT ALERT/ORIENTED X2, UP WITH ASSIST OF ONE WITH WALKER AND GAIT BELT, NO COMPLAINTS OF PAIN THIS SHIFT, HOURLY ROUNDING COMPLETED, BED/CHAIR ALARMS ON, CALL LIGHT IN REACH, PARTICIPATED IN ALL THERAPIES TODAY, TO DINING ROOM FOR MEALS. PATIENT HAS BEEN ALERT THIS SHIFT, DID HAVE SHOWER WITH THERAPY AND HAS BEEN UP IN CHAIR ALL DAY IN PLEASANT MOOD.
[2017-09-13 20:07] VITALS: BP 104/50
--- NOTE | 2017-09-14 05:27 | NUR ---
ASSUMED PT CARE AT 1930. PT SITTING UP IN RECLINER VISITING WITH SON AND DAUGHTER. PT ALERT AND ORIENTED X2. PER PT'S DAUGHTER, PREVIOUS NIGHT PT COULD HEAR STAFF TALKING TO HER BUT WAS UNABLE TO RESPOND. PT TALKATIVE THIS SHIFT. TOOK PILLS WHOLE WITHOUT DIFFICULTY. DENIES PAIN. UP WITH ONE, GAIT BELT AND WALKER TO BATHROOM TO VOID X3 THIS SHIFT. CALL LIGHT AND FREQUENTLY USED ITEMS WITHIN REACH. USES CALL LIGHT APPROPRIATELY. HOURLY ROUNDING IN PROGRESS, WILL CONTINUE TO MONITOR.
[2017-09-14 07:30] VITALS: BP 130/63
--- NOTE | 2017-09-14 14:36 | NUR ---
ASSUMED CARE AT 0730. ALERT AND ORIENTED TO SELF AND PLACE. HX OF EXCACERBATED PARKINSONS. TRANSFERS WITH MIN ASSIST G BELT WALKER UP IN W/C FOR BREAKFAST. FEEDS SELF ASSIST OPENING CONTAINERS. APPETITE FAIR TAKES MEDS WITHOUT DIFFICULTY WITH WATER. PARTICIPATING IN THERAPIES THROUGHOUT THE DAY. TO DR FOR MEALS. SITTING UP IN RECLINER WHEN NOT IN THERAPIES. IN GOOD SPIRITS TODAY. SON HERE THIS AFTERNOON TO VISIT.
[2017-09-14 19:46] VITALS: BP 103/46
[2017-09-15 04:11] LABS: HEMATOCRIT 37.7 % (37.0-47.0); HEMOGLOBIN 11.9 gm/dL (12.0-15.0); MCH 28.4 pg (26.0-34.0); MCHC 31.7 g/dL (28.0-37.0); MCV 89.5 fL (80.0-100.0); MPV 8.4 fl. (7.2-11.1); RBC 4.21 mil/uL (4.20-5.00); RDW-CV 16.2 % (10.5-14.5); WBC 6.4 thou/uL (4.0-11.0)
[2017-09-15 04:41] LABS: ALBUMIN 3.3 g/dL (3.4-5.0); CALCIUM 9.2 mg/dL (8.5-10.1); CREATININE 1.4 mg/dL (0.6-1.3); MAGNESIUM 2.1 mg/dL (1.8-2.4); POTASSIUM 3.8 mmol/L (3.5-5.1); TOTAL BILIRUBIN 0.4 mg/dL (<0.1-1.0); TOTAL PROTEIN 7.1 g/dL (6.4-8.2)
--- NOTE | 2017-09-15 05:20 | NUR ---
ASSUMED PT CARE AT 1930. PT SITTING UP IN RECLINER VISITING WITH FAMILY. PT ALERT AND ORIENTED X2. PT IN GOOD SPIRITS. TOOK PILLS WHOLE WITH WATER WITHOUT DIFFICULTY. DENIES PAIN. UP X1 OVERNIGHT TO BATHROOM TO VOID WITH ASSIST OF ONE, GAIT BELT AND WALKER. NO STOOL THIS SHIFT. CALL LIGHT AND FREQUENTLY USED ITEMS WITHIN REACH. HOURLY ROUNDING IN PROGRESS, WILL CONTINUE TO MONITOR.
[2017-09-15 07:40] VITALS: BP 145/77
--- NOTE | 2017-09-15 14:47 | NUR ---
ASSUMED CARE AT 0730. ALERT AND ORIENTED X 2 PLEASANT COOPERATIVE. HX OF PARKINSONS EXCACERBATION. HX OF DEMENTIA.
--- NOTE | 2017-09-15 15:06 | NUR ---
TRANSFERS WITH SBA G BELT WALKER AMBULATES SLOW GAIT TO BR AND IS ABLE TO DO HYGEINE AND CLOTHING ADJUSTMENTS. DENIES PAIN OR REQUESTS UP IN W/C AND RECLINER APPETITE BETTER TODAY FEEDS SELF AND TAKES MEDS WITHOUT DIFFICULTY. USES CALL LIGHT APPROPRIATELY. BED CHAIR ALARM ON FOR PTKandis ESQUEDA. PT. DID SPONGE BATH AND DRESS THIS A.M. HAS BEEN IN GOOD SPIRITS FEEDLOT MANAGER VISITED AT LUNCH TIME. SLEEPING AFTER LUNCH IN BED.
[2017-09-15 20:00] VITALS: BP 139/57
--- NOTE | 2017-09-16 05:13 | NUR ---
ASSUMED CARES AT 1920. ALERT AND ORIENTED X 3. CALM AND COOPERATIVE. DENIED ANY PAIN. TOOK PILLS WHOLE WITHOUT ISSUES. SHE IS A SBA WITH GAIT BELT AND WALKER. UP TO BATHROOM. WEARS PULLUPS. DOES OWN CARES. NO COMPLAINTS OVERNIGHT. SLEPT WELL. CALL LIGHT IN REACH AND BED ALARM ON.
[2017-09-16 07:47] VITALS: BP 175/67
--- NOTE | 2017-09-16 14:19 | NUR ---
ASSUMED CARE AT 0730. ALERT ORIENTED X 2 PLEASANT AND COOPERATIVE. HX OF PARKINSONS EXCACERBATION. TRANSFERS WITH SBA G BELT WALKER AND AMBULATES WITH SLOW GAIT TO BR TO VOID ABLE TO DO HYGEINE AND CLOTHING ADJUSTMENTS. PARTICIPATING IN THERAPIES FEEDS SELF WITH SET UP TAKES MEDS WITHOUT DIFFICULTY. APPETITE FAIR TODAY BREAKFAST GOOD LUNCH POOR. DENIES PAIN OR CONCERNS. USES CALL LIGHT APPROPRIATELY FOR ASSIST BED CHAIR ALARM FOR PT. SAFETY.
--- NOTE | 2017-09-16 18:53 | NUR ---
SLEPT FOR A COUPLE HOURS AFTER THERAPIES COMPLETED. UP IN W/C AND TO DR RAQUEL TAYLOR ATE 50% SUPPER MEAL. C/O STIFFNESS IN HER HANDS AFTER HER NAP. SON AND DAUGHTER HERE VISITING. DENIED OFFER OF TYLENOL FOR STIFFNESS. IN GOOD SPIRITS.
[2017-09-16 20:43] VITALS: BP 123/60
--- NOTE | 2017-09-17 05:11 | NUR ---
ASSUMED PT CARE AT 1930. PT ALERT AND ORIENTED X2, POLITE AND COOPERATIVE WITH CARES. HX OF PARKINSON'S EXACERBATION. DENIES PAIN. TOOK EVENING MEDS WITH WATER WITHOUT DIFFICULTY. SBA WITH GAIT BELT AND WALKER TO BATHROOM TO VOID. WEARS PULLUPS. SLEPT WELL OVERNIGHT. USES CALL LIGHT APPROPRIATELY. CALL LIGHT AND FREQUENTLY USED ITEMS WITHIN REACH. HOURLY ROUNDING IN PROGRESS, WILL CONTINUE TO MONITOR.
[2017-09-17 08:56] VITALS: BP 155/72
--- NOTE | 2017-09-17 11:12 | NUR ---
PT IS NOT PARTICIPATING WITH NURSING OR THERAPIES AND IS TOTAL LIFT TO TRANSFERR TO TOILET AND WHEELCHAIR. PT SEEMS TO INTENTIONALLY HOLD EYES AND MOUTH TIGHT.PT DOES NOT SLUMP IN W/C BUT WILL LEAN RIGHT OR LEFT WITH HEAD DOWN. PT DID VOID WHEN TRANSFERRED TO TOILET. OT TRYING TO WORK WITH PT NOW. PT HAS REFUSED AM MEDICATIONS AND EATING BREAKFAST OR DRINKING WHEN GIVEN ASSIST.PT DOES NOT APPEAR TO BE IN PAIN WITH RESPIRATIONS EVEN AND UNLABORED.PLAN TO PLACE PT IN BED WHEN FINISHED WITH THERAPY. CHAIR ALARM ON.WILL CONTINUE TO MONITOR.PT HAS DONE THIS IN PAST BUT IS USUALLY AWAKE IN AM.
--- NOTE | 2017-09-17 14:15 | NUR ---
SW called and spoke with pt son in preparation for team conference tomorrow. Pt son interested in feedback on pt capabilities and pt needs so that they will be able to adjust and follow any of the team's recommendations for pt needs. Pt, pt family goal remains to bring pt home at dc with [facility] but that they also want to be realistic and keep future options open for [facility] if/when needed. SW to continue to follow to assist with safe dc planning.
--- NOTE | 2017-09-17 18:18 | NUR ---
PT HAS SLEPT MOST OF DAY AND KEEPS EYES CLOSED TIGHT AND MOUTH CLOSED REFUSING MEDICATIONS AND FOODS TODAY. PT HAS BEEN UP TO W/C AND THERAPIES HAVE TRIED TO WORK WITH HER. SON HERE THIS AFTERNOON WITH PT NOT TALKING TO HIM EITHER.PT TURNED AND REPOSITIONED Q2 HOUR AND PRN. PT IS KNOWN TO HAVE NONPRODUCTIVE DAYS. PT WAS INCONTINENT OF BLADDER THIS AFTERNIIN WITH PERICARE GIVEN. PT RESTS WITH RESPIRATIONS EVEN AND UNLABORED AND DOES NOT APPEAR IN DISTRESS.WILL CONTINUE TO WORK TOWARDS GOALS AND HOURLY ROUNDING CONTINUES.
[2017-09-17 19:50] VITALS: BP 156/83
--- NOTE | 2017-09-18 05:15 | NUR ---
ASSUMED PT CARE AT 1930. HX OF PARKINSON'S EXACERBATION. PT SLEEPING AND WILL NOT OPEN HER EYES FOR STAFF OR HER DAUGHTER. REFUSES NIGHT TIME MEDS. PT DAUGHTER AT BEDSIDE OVERNIGHT. PT INCONTINENT ONCE, PERICARES GIVEN. PT VITAL SIGNS WNL. PT TURNED Q2 AND PRN. PT AWAKENED AT 0230 TAKEN TO BATHROOM TO VOID WITH GAIT BELT AND WALKER. PT TALKED WITH STAFF AND DAUGHTER THEN BACK TO BED. CALL LIGHT AND FREQUENTLY USED ITEMS WITHIN REACH. HOURLY ROUNDING IN PROGRESS, WILL CONTINUE TO MONITOR.
[2017-09-18 08:10] VITALS: BP 144/84
--- NOTE | 2017-09-18 14:44 | NUR ---
CLAUDIO and Dr Jordan met with pt and pt dtr to review team conference summary. Plan for pt to dc home with family care on Saturday and HH services to follow. Family training to be offered to pt family. CLAUDIO to continue to follow to assist with safe dc planning.
--- NOTE | 2017-09-18 17:14 | NUR ---
PT AWAKE AND HAS PARTICIPATED WITH THERAPIES TODAY AND CALLS FOR ASSIST TO BATHROOM. PT AMBULATES WITH SLOW STEADY GAIT WALKER, GAITBELT AND MIN ASSIST OF 1. PT REMAINS CONTINENT OF B+B BUT HAD LOOSE BM THIS AFTERNOON. PT EATS MEALS IN DINNINGROOM WELL TODAY. FAMILY HERE TO VISIT. PT IS ALERT THIS AFTERNOON AND APPROPIATE.PT PROGRESSES TOWARDS GOALS AND HOURLY ROUNDING CONTINUES.
[2017-09-18 19:30] VITALS: BP 92/59
--- NOTE | 2017-09-19 01:34 | NUR ---
ASSUMED CARE @ 1919-09/18-SAT.BEING ASSISTED BY HIP HOP ARTIST TO TOILET @ THIS TIME.THEN, TO BED.HOB UP.WANTS ONLY SIDERAILS X2 UP.BED ALARM PUT ON @ 1949.HEELS OFF BED @ 1949.DAUGHTER-CHON VISITING @ THIS TIME.HS DOSE LISINOPRIL HELD.BP -92/59.ON HOURLY ROUNDS.HIP HOP ARTIST DOING ODD HOUR ROUNDS.
--- NOTE | 2017-09-19 05:34 | NUR ---
SLEEPING SINCE -09/19-.TOOK ALL ONE PACKAGE SANGE[employer] HS SNACKS.BRP X1 & USED BSC X2.
[2017-09-19 06:00] VITALS: BP 137/66
--- NOTE | 2017-09-19 06:24 | NUR ---
BP @ 1930-92/59.LISINOPRIL HELD HS DOSE.BP RE-CHECKED @ 0600-137/66-82.
[2017-09-19 08:00] VITALS: BP 113/50
--- NOTE | 2017-09-19 14:57 | NUR ---
PT CARE ASSUMED AT 0720, ASSESSMENT AND VITAL SIGNS COMPLETED DOCUMENTED. PT HAS BEEN PLEASANT AND COOPERATIVE, INTERACTIVE TODAY. PT HAS HAD A GOOD APPETITE, FEEDS HERSELF AT MEALS. FALL PRECAUTIONS AND HOURLY ROUNDING CONTINUE.
--- NOTE | 2017-09-19 15:12 | NUR ---
SW faxed SNF referral to [facility] at pt family request as pt son felt even after family training that he would not be comfortable with pt dc home yet and wanted pt to be able to have more rehab opportunities at SNF and then he and pt/family would reevaluate if they will be able to care for pt at home with services. CLAUDIO to continue to follow to assist with finalizing safe dc plan and determining if SNF accepted for pt to dc tomorrow, Wednesday 09/20.
[2017-09-19 20:00] VITALS: BP 125/48
[2017-09-19] MEDS ORDERED: SEROQUEL 25 MG25 M1 PO (23:28)
[2017-09-19] MEDS ORDERED: ADDERALL 20 MG20 M1 PO (23:36)
--- NOTE | 2017-09-20 05:13 | NUR ---
ASSUMED CARES AT 1920. ALERT AND ORIENTED. PLEASANT. DENIED ANY PAIN. TAKES PILLS WHOLE WITHOUT ISSUES. UP WITH MIN ASSIST WITH GAIT BELT AND WALKER TO [facility]. DOES OWN CARES. WEARS PULLUPS. SLEPT WELL MOST OF THE NIGHT. NO ISSUES. CALL LIGHT IN REACH AND BED ALARM ON.
[2017-09-20 08:00] VITALS: BP 111/61
[2017-09-20 10:08] VITALS: BP 111/61
--- NOTE | 2017-09-20 14:06 | NUR ---
PT CARE ASSUMED AT 0730, ASSESSMENT AND VITAL SIGNS COMPLETED DOCUMENTED. PT HAS COMPLETED ALL THERAPY SESSIONS FOR THE DAY AND IS RESTING IN BED AT THIS TIME. TRANSPORTATION WILL BE PROVIDED BY [facility], SCHEDULED FOR 1600. PT'S SON WAS HERE EARLIER AND TOOK HER BELONGINGS. NO ACUTE DISTRESS, HOURLY ROUNDING AND FALL PRECAUTIONS CONTINUED.
--- NOTE | 2017-09-20 16:02 | NUR ---
PT ASSISTED INTO WHEELCHAIR, TRANSPORTER AND SON ACCOMPANIED HER TO THE EXIT, DISCHARGED TO [facility] IN STABLE CONDITION.
--- NOTE | 2017-09-20 16:36 | NUR ---
CLAUDIO spoke with Kailey in admissions at [facility] who approved pt to admit to SNF today and arranged ride for 16:00. CLAUDIO spoke with pt son and informed of finalized dc plans. CLADUIO faxed final orders and med list to [facility]. Chart copied, pt nurse aware of number to call report. No other dc needs expressed.
--- NOTE | 2017-10-06 08:15 | PLAN ---
[address] [address] REHAB UNIT PLAN OF CARE Name: SHAYYAUTUMN Kaylee Room: [address] IN [facility].#: [id number] Admission: 09/04/17 Attend Phys: Lashaun Jordan DO Discharge: 09/20/17 Date of : 35 Report #: [id number] THIS REPORT FOR: //name// CC: Jonathon Jordan This is an 81-year-old female, admitted to inpatient rehabilitation to facilitate safe discharge home, status post Parkinson's exacerbation. She is having increasing weakness, difficulty walking, recent hip fracture after a fall in July, altered mental status and encephalopathy. Previous level of function was modified independent to minimum assistance depending on activity and time of day. Current level of function is minimum to moderate assistance of 1-2 depending on therapy, activity and time of day. Estimated length of stay is 16-18 days with discharge disposition to the home setting. She does have medical prognosis good. Rehabilitation prognosis is good, although she does have chronic ongoing neuromuscular disorder. Physical Therapy will see the patient 60-90 minutes per day, 5 days per week, working on upper and lower body strength, balance, coordination, navigation. Occupational therapy will work with the patient 60-90 minutes per day, 5 days per week, working on upper and lower body strength, balance, coordination, navigation, bathing, dressing, and toileting. Speech and Language Pathology will work with the patient 60-90 minutes per day, 5 days per week, working on memory, coordination, expression. This is an overall plan of care, may change from time to time. We will team weekly and make changes to plan of care as needed. <ELECTRONICALLY SIGNED> By: Lashaun Jordan DO 10/06/17 0815 1313 [id number] Jordan DO /nt
--- NOTE | 2017-10-06 08:15 | H ---
[address] [address] HISTORY AND PHYSICAL Name: SHAYYAUTUMN L Room: [address] IN M.Robert.#: [id number] Admission: 09/04/17 Attend Phys: Lashaun Jordan DO Discharge: 09/20/17 Date of : 35 Report #: [id number] THIS REPORT FOR: //name// CC: Jonathon Jordan DATE OF SERVICE: 09/04/2017 HISTORY OF PRESENT ILLNESS: This is an 81-year-old female admitted to inpatient rehabilitation to facilitate safe discharge home, status post Parkinson's exacerbation, beginning on 08/30/2017, where she was acutely hospitalized at [facility]. She does have irregular heart rate with atrial fibrillation, experiencing increased weakness, debility and difficulty with walking since stopping her Eliquis 4 days prior. She was also recovering from a recent fall in July, where she did break her right hip. She was also noted to have altered mental status and encephalopathy. Due to the combination, the Parkinson's exacerbation has continued to have significant debility. No significant changes since the preadmission screening. Previous level of function was modified independent to minimum assistance depending on time of day and symptoms. Current level of function is minimum to moderate assistance of 1-2 depending on therapy, activity and time of day. She is ambulating with front-wheeled walker. She has [id number] impairment of comprehension, expression, social interaction, problem solving and memory. Estimated length of stay 16-18 days with discharge disposition to home, where she has supportive family. She has a ramp. She lives in a house. She does have needs in all 3 disciplines. PAST MEDICAL HISTORY: Atrial fibrillation, Parkinson's, depression, hypertension, dementia, weakness, tachycardia, history of falls, heart murmur, right hip fracture, left hip fracture, cerebral atrophy, drug-induced movement disorder. PAST SURGICAL HISTORY: Hysterectomy, left total hip arthroplasty, bilateral cataract surgeries, removal of skin cancer. MEDICATIONS: Reviewed and reconciled by myself and are available in the MAR. ALLERGIES: AZITHROMYCIN. SOCIAL HISTORY: No tobacco, alcohol or illicit drug use. REVIEW OF SYSTEMS: A 14-point review of systems is done and is negative except as mentioned in HPI, specifically no fever, chest pain, shortness of breath, abdominal pain or distention. PHYSICAL EXAMINATION: [place] [id number] HISTORY AND PHYSICAL Name: AUTUMN LUCAS Kaylee Room: [address]#: [id number] Admission: 09/04/17 Attend Phys: Lashaun Jordan, Discharge: 09/20/17 Date of : 35 Report #: [id number] GENERAL: Alert and oriented, in no apparent distress. VITAL SIGNS: Reviewed and are stable. HEENT: Head atraumatic, normocephalic. Pupils equal, round, reactive. ABDOMEN: Soft, nontender, nondistended. NEUROLOGIC: Cranial nerves 2-12 are grossly intact with no focal neuro deficits, 5/5 strength in the bilateral upper and lower extremities. SKIN: Warm and dry. No rashes or lesions noted. ASSESSMENT: 1. Parkinson's exacerbation. 2. Recent fall, sustaining a right hip fracture. 3. Altered mental status, encephalopathy. 4. Debility with alterations in mobility and activities of daily living. PLAN: 1. Admission to inpatient rehabilitation to facilitate safe discharge home. 2. PT, OT, speech, language, case management, nursing and HIMS to make evaluations and recommendations. 3. Plan of care is pending. 4. We will team her weekly. 5. Two gram sodium, heart-healthy diet. <ELECTRONICALLY SIGNED> By: Lashaun Jordan DO 10/06/17 0815 1311 [id number] Jordan DO /nt
--- NOTE | 2017-10-06 08:16 | D ---
[facility] [address] [place] [address] DISCHARGE SUMMARY Name: AUTUMN LUCAS Kaylee Room: [address] IN M.R.#: [id number] Admission: 09/04/17 Attend Phys: Lashaun Jordan DO Discharge: 09/20/17 Date of : 35 Report #: [id number] THIS REPORT FOR: //name// CC: Jonathon Jordan DISCHARGE DIAGNOSIS: Parkinson's exacerbation. DISCHARGE DISPOSITION: To home with home health, PT, OT, nursing, speech and language pathology as well as a bath aide. She will follow up with primary care physician within 1 week, Neurology in 2-3 weeks. Notifications for physician were given. Diet is the same. Monitor weight gain. 03/09 supervision. Fall precautions, front-wheeled walker for ambulation. MEDICATIONS: Reviewed, reconciled by myself and are available in the MAR. She is on a new dose of sertraline, Zoloft 100 mg p.o. daily and a prescription was given for that. She was restarted on Seroquel 12.5 mg p.o. at bedtime. That prescription is already obtained. She was also started on a trial of Provigil due to excessive daytime sleepiness. She did do well with that and in place of the Provigil, she is being sent home on Adderall 20 mg p.o. q.a.m. with a repeat after 4 hours as needed with a #60, no refills on the chart and she can follow with her primary on that. DISCHARGE PHYSICAL EXAMINATION: GENERAL: Alert, oriented, in no apparent distress. VITAL SIGNS: Reviewed and are stable. HEENT: Head atraumatic, normocephalic. Pupils equal, round, reactive. ABDOMEN: Soft, nontender, nondistended. NEUROLOGIC: Cranial nerves 2-12 are grossly intact with no focal neuro deficits. <ELECTRONICALLY SIGNED> By: Lashaun Jordan DO 10/06/17 0816 1311 [id number] Jordan DO /nt
== END 2017-09-20 16:07 | DRG 56 ==
LOC: M.REH 15:04
PROVIDERS: Family Medicine; ADMIT Physical Medicine & Rehabilitation
DX: G20 Parkinson's disease (principal); G93.40 Encephalopathy, unspecified; F02.81 Dementia in other diseases classified elsewhere, unspecified severity, with behavioral disturbance; F32.9 Major depressive disorder, single episode, unspecified; R53.81 Other malaise; I10 Essential (primary) hypertension; G31.89 Other specified degenerative diseases of nervous system; R79.1 Abnormal coagulation profile; G25.79 Other drug induced movement disorders; T43.595A Adverse effect of other antipsychotics and neuroleptics, initial encounter; I48.2 Chronic atrial fibrillation; Z66 Do not resuscitate; Z96.643 Presence of artificial hip joint, bilateral; Z91.81 History of falling; Z87.81 Personal history of (healed) traumatic fracture; Z90.710 Acquired absence of both cervix and uterus; Z98.42 Cataract extraction status, left eye; Z98.41 Cataract extraction status, right eye; Z85.828 Personal history of other malignant neoplasm of skin; Z88.1 Allergy status to other antibiotic agents; Z79.82 Long term (current) use of aspirin; Z79.899 Other long term (current) drug therapy